=== PATIENT | male | born 1980 | race Caucasian/White ===

== ENCOUNTER 2023-05-01 18:32 | Emergency (ER) | payer OTHER ==
[2023-05-01] MEDS ORDERED: Lidocaine 1% 10 ML MDV INJECT ONE (19:06)
== END 2023-05-01 20:10 | disposition home or self-care (01) ==
LOC: JD.ED 18:32
DX: S61.310A Laceration without foreign body of right index finger with damage to nail, initial encounter (principal); W23.0XXA Caught, crushed, jammed, or pinched between moving objects, initial encounter
CPT/HCPCS: 12001; 73140-26-F6; 73140-F6; 99283; J3490